=== PATIENT | female | born 2005 | race Hispanic/Latino ===

== ENCOUNTER 2024-01-25 16:01 | Emergency (ER) | payer SELFPAY ==
[~2024-01-25] VITALS: Ht 152.4 cm; Wt 59.0 kg
[2024-01-25 17:23] VITALS: BP 150/90; PULSE 75; RESP 16; TEMP 98.1; O2SAT 98
[2024-01-25 17:26] LABS: APPEARANCE,URINE CLEAR (CLEAR); BILIRUBIN,URINE NEGATIVE (NEGATIVE); COLOR,URINE YELLOW (YELLOW); GLUCOSE, URINE (UA) NEGATIVE (NEGATIVE); KETONES,URINE NEGATIVE (NEGATIVE); LEUKOCYTE ESTERASE ,URINE NEGATIVE Leu/uL (NEGATIVE); NITRATE,URINE NEGATIVE (NEGATIVE); OCCULT BLOOD,URINE SMALL (NEGATIVE); PH,URINE 5.5 (5.0-8.0); PROTEIN,URINE 10 mg/dL (NEGATIVE); UROBILINOGEN,URINE 0.2 mg/dL (0.2-1.0)
[2024-01-25 17:32] LABS: BASOPHILS # (AUTO) 0.02 K/uL (0.00-0.20); BASOPHILS % (AUTO) 0.2 % (0.0-5.0); EOSINOPHILS % (AUTO) 1.1 % (0.0-8.0); HEMATOCRIT 41.2 % (36-48); IMMATURE GRANULOCYTE ABSOLUTE 0.04 K/uL (0-1); LYMPHOCYTES # (AUTO) 2.9 K/uL (1.0-4.8); LYMPHOCYTES % (AUTO) 32.8 % (21.0-51.0); MEAN CORPUSCULAR HEMOGLOBIN 28.8 pg (27.0-33.0); MEAN CORPUSCULAR HGB CONC 32.5 g/dL (32.0-36.0); MEAN CORPUSCULAR VOLUME 88.6 fL (80-100); MONOCYTES # (AUTO) 0.4 K/uL (0.1-1.0); MONOCYTES % (AUTO) 4.6 % (3.0-13.0); NEUTROPHILS # (AUTO) 5.4 K/uL (1.8-7.7); NEUTROPHILS % (AUTO) 60.9 % (40.0-77.0); PLATELET COUNT (AUTO) 327 K/uL (130-400); RED BLOOD CELL COUNT(AUTO) 4.65 MIL/uL (4.00-5.50); RED CELL DISTRIBUTION WIDTH 12.7 % (11.0-15.5)
[2024-01-25 17:33] LABS: MUCUS,URINE MOD LPF (None Seen); SQUAMOUS EPITHELIAL CELL,UR FEW /HPF (0-2)
[2024-01-25 17:42] LABS: HCG,QUALITATIVE URINE NEGATIVE (NEGATIVE)
[2024-01-25 17:44] LABS: CREATININE 0.9 mg/dL (0.5-1.0); POTASSIUM 3.5 mmol/L (3.5-5.1)
[2024-01-25 17:51] LABS: ALBUMIN 4.1 g/dL (3.5-5.0); BILIRUBIN,TOTAL 0.6 mg/dL (0.2-1.0); TOTAL PROTEIN, SERUM 8.3 g/dL (6.0-8.3)
[2024-01-25] MEDS ORDERED: PANT20TA PO (18:31)
--- NOTE | 2024-01-25 18:31 | ERN ---
General Chief Complaint: Abdominal Pain Stated Complaint: STOMACH PAIN Time Seen by MD: 16:02 Time Seen by Midlevel: 16:02 Source: patient History of Present Illness Initial Comments 18-year-old presents to the ED due to abdominal pain onset three weeks. Patient reports pain comes and goes. States to be having nausea and diarrhea but denies any fever , dysuria or further associated symptoms. Patient states she eats spicy food. Denies any significant past medical history. Allergies: Coded Allergies: No Known Allergies (Unverified Allergy, Unknown, 01/25/24) Home Meds Active Scripts Pantoprazole Sodium (Protonix) 20 Mg Tablet., 20 MG PO DAILY for 30 Days, #30 TAB Prov:MELISSA WEBB 01/25/24 Past Medical History Past Medical History: No Pertinent History Past Surgical History: None Female( History) LMP: Dec 31, 2023 ROS Dictation Constitutional: Negative for fever,chills, and weight loss Eyes: Negative for injury, pain,redness, and discharge ENT: Negative for injury,pain or swelling Cardiovascular: Negative for chest pain, palpitations, and edema Respiratory: Negative for shortness of breath, cough, and wheezing, Abdomen/GI: Positive for abdominal pain Negative for vomiting, and constipation Back: Negative for injury and pain : Negative for painful urination, bleeding or discharge MS/Extremity: Negative for injury and deformity Skin: Negative for rash, and discoloration Neuro: Negative for headache, weakness, numbness, tingling, and seizure Psych: Negative for suicide ideation, homicidal ideation, and hallucinations Physical Exam Physical Exam Dictation General: awake, alert, no acute distress Head/Face: Normocephalic, atraumatic Eyes: normal conjunctiva Neck: Normal range of motion, supple Cardiovascular: RRR, normal S1/S2 Respiratory: CTAB, no respiratory distress, No rales or wheezes Abdomen: Soft, non-tender, non-distended, normal bowel sounds, no guarding or rebound. Skin: Warm, dry, normal turgor, no rash MS/Extremity: Pulses equal, no cyanosis, neurovascular intact, FROM Neuro: COAx4, GCS 15, no neurological deficits, normal gait, Psych: Normal behavior, mood, and affect normal Results Laboratory and Microbiology Lab and Micro Result Laboratory Tests Test 01/25/24 17:11 01/25/24 17:15 Urine Color YELLOW (YELLOW) Urine Appearance CLEAR (CLEAR) Urine pH 5.5 (5.0-8.0) Urine Specific [place] 1.034 (1.001-1.031) Urine Protein 10 mg/dL (NEGATIVE) H Urine Glucose (UA) NEGATIVE mg/dL (NEGATIVE) Urine Ketones NEGATIVE mg/dL (NEGATIVE) Urine Occult Blood SMALL (NEGATIVE) H Urine Nitrate NEGATIVE (NEGATIVE) Urine Bilirubin NEGATIVE mg/dL (NEGATIVE) Urine Urobilinogen 0.2 mg/dL (0.2-1.0) Urine Leukocyte Esterase NEGATIVE Rebecca/uL Urine RBC 2-5 /HPF (0-1) H Urine WBC 2-5 /HPF (0-1) H Urine Squamous Epithelial Cells FEW /HPF (0-2) Urine Bacteria None /HPF (None Seen) Urine HCG, Qualitative NEGATIVE (NEGATIVE) White Blood Count 9.0 K/uL (4.8-10.8) Red Blood Count 4.65 MIL/uL (4.00-5.50) Hemoglobin 13.4 g/dL (12.0-16.0) Hematocrit 41.2 % (36-48) Mean Corpuscular Volume 88.6 fL (80-100) Mean Corpuscular Hemoglobin 28.8 pg (27.0-33.0) Mean Corpuscular Hemoglobin Concent 32.5 g/dL (32.0-36.0) Red Cell Distribution Width 12.7 % (11.0-15.5) Platelet Count 327 K/uL (130-400) Mean Platelet Volume 10.4 fL (7.5-10.5) Immature Granulocyte % (Auto) 0.4 % (0-1) Neutrophils (%) (Auto) 60.9 % (40.0-77.0) Lymphocytes (%) (Auto) 32.8 % (21.0-51.0) Monocytes (%) (Auto) 4.6 % (3.0-13.0) Eosinophils (%) (Auto) 1.1 % (0.0-8.0) Basophils (%) (Auto) 0.2 % (0.0-5.0) Neutrophils # (Auto) 5.4 K/uL (1.8-7.7) Lymphocytes # (Auto) 2.9 K/uL (1.0-4.8) Monocytes # (Auto) 0.4 K/uL (0.1-1.0) Eosinophils # (Auto) 0.10 K/uL (0.00-0.70) Basophils # (Auto) 0.02 K/uL (0.00-0.20) Absolute Immature Granulocyte (auto 0.04 K/uL (0-1) Nucleated Red Blood Cells 0.0 % (0.0-0.19) Sodium Level 139 mmol/L (136-145) Potassium Level 3.5 mmol/L (3.5-5.1) Chloride Level 103 mmol/L (101-111) Carbon Dioxide Level 29 mmol/L (21-32) Blood Urea Nitrogen 14 mg/dL (7-18) Creatinine 0.9 mg/dL (0.5-1.0) Glomerular Filtration Rate Calc 94 mL/min (>90) Random Glucose 91 mg/dL (70-105) Total Calcium 9.1 mg/dL (8.5-10.1) Total Bilirubin 0.6 mg/dL (0.2-1.0) Aspartate Amino Transf (AST/SGOT) 15 U/L (10-37) Alanine Aminotransferase (ALT/SGPT) 22 U/L (12-78) Alkaline Phosphatase 94 U/L (50-136) Total Protein 8.3 g/dL (6.0-8.3) Albumin 4.1 g/dL (3.5-5.0) Labs Reviewed?: Yes MDM MDM: Differential diagnosis: Gastritis, acid reflux, abdominal pain Rationale: 18-year-old presents to the ED due to abdominal pain onset three weeks. Patient reports pain comes and goes. States to be having nausea and diarrhea but denies any fever , dysuria or further associated symptoms. Patient states she eats spicy food. Denies any significant past medical history. Labs obtained are nonspecific, UA negative for urinary tract infection. Per physical examination patient's abdomen is soft, nontender, she is in no acute distress no indication for CT abdomen to be obtained. The patient was administered GI cocktail in the ED with pain improvement. Protonix prescribed for outpatient treatment. Advised to follow up with PCP. Return to the ED if any worsening symptoms. Patient verbalized understanding. Patient stable for discharge. There are no social concerns with this patient. I independently interpreted the test that were performed, results were reviewed by me and considered findings on radiology if ordered. Medical management and examination interpretation discussions were had by me with other qualified healthcare professionals as indicated for the patient's care. ED Course Orders Procedure Category Date Status Time Cbc With Differential LAB 01/25/24 Complete 16:30 Comprehensive LAB 01/25/24 Complete Metabolic Panel 16:30 Urinalysis LAB 01/25/24 Complete W/Microscopic 16:30 ,Urine Test LAB 01/25/24 Complete 16:30 Mag/Alum/Simeth 30ml PHA 01/25/24 Complete (Maalox Plus 30ml) 18:30 Lidocaine Hcl 2% PHA 01/25/24 Complete Viscous (Lidocaine Hcl 18:30 Pantoprazole 40mg Tab PHA 01/25/24 Complete (Protonix 40mg Tab 18:30 Current Medications Medications (Trade) Dose Ordered Sig/Alexey Route PRN Reason Start Time Stop Time Status Last Admin Dose Admin Al Hydroxide/Mg Hydroxide (MAALox PLUS 30ML) 30 ml ONCE ONCE PO 01/25/24 18:30 01/25/24 18:31 DC 01/25/24 18:56 Lidocaine HCl (Lidocaine HCl 2% Viscous) 10 ml ONCE ONCE PO 01/25/24 18:30 01/25/24 18:31 DC 01/25/24 18:56 Pantoprazole Sodium (PROTonix 40MG TAB) 20 mg ONCE ONCE PO 01/25/24 18:30 01/25/24 18:31 DC 01/25/24 18:56 Vital Signs Date Time Temp Pulse Resp B/P (MAP) Pulse Ox O2 Delivery O2 Flow Rate FiO2 01/25/24 17:23 98.1 75 16 150/90 98 Room Air* 0 21 01/25/24 16:34 98.1 75 16 152/93 99 Room Air 0 DX & DISP Disposition: Discharge Departure Impression: Primary Impression: Abdominal pain Additional Impression: Gastritis Condition: Stable Scripts Pantoprazole Sodium (Protonix) 20 Mg Tablet. 20 MG PO DAILY for 30 Days, #30 TAB Prov: MELISSA WEBB 01/25/24 Additional Instructions: Discharge home. Rest. Follow up with primary care in 24 hours. Return to the ER for any acute changes or worsening symptoms. If any medications were prescribed take as directed. Okay to continue home medications unless otherwise discussed during your visit in the emergency room today. Patient was also advised to follow-up with primary care physician in 1 to 2 days for continued monitoring. Referrals: BRET MEJIA (PCP) I participated in the following activities of this patient's care: For this patient encounter, I reviewed the PA or [employer] documentation, treatment plan, and medical decision making. I did not have [id number]-[id number] time with this patient. I will sign as the reviewing Dr. And agree with the treatment plan and disposition. MELISSA WEBB Jan 25, 2024 18:31
[2024-01-25] MEDS: PANTOPrazole 40 MG TAB DR PO ONE (18:56)
[2024-01-25] MEDS: LIDOCAINE HCL 2% VISCOUS 15 ML UDCUP PO ONE (18:56)
[2024-01-25] MEDS: MAG/ALUM/SIMETH 30 ML UDCUP PO ONE (18:56)
== END 2024-01-25 19:07 | disposition home or self-care (01) ==
LOC: EDH 16:01
DX: K29.70 Gastritis, unspecified, without bleeding (principal); R10.9 Unspecified abdominal pain; Z79.899 Other long term (current) drug therapy
CPT/HCPCS: 36415; 80053; 81001; 81025; 85025; 99284